=== PATIENT | female | born 1935 ===

== ENCOUNTER 2022-02-28 14:57 | Outpatient (REF) | payer MEDICARE, SELFPAY ==
[2022-02-28 15:16] LABS: Abs Immature Grans 0.03 10^3/uL (0.0-0.06); Absolute Eosinophil Count 0.32 10^3/uL (0.0-0.7); Absolute Lymphocyte Count 3.03 10^3/uL (1.2-3.4); Absolute Monocyte Count 0.85 10^3/uL (0.1-0.8); Basophils % 0.8; Eosinophils % 2.6; HCT 39.8 % (36.0-46.0); HGB 12.9 g/dL (11.2-15.7); Immature Grans % 0.2; Lymphocytes % 24.5; MCH 29.5 pg (27.0-33.0); MCHC 32.4 % (32.0-36.0); MCV 91 fL (80-95); MPV 12.4 fL (8.0-11.0); Monocytes % 6.9; Platelet Count 233 10^3/uL (130-400); RBC 4.38 10^6/uL (3.93-5.22); RDW-SD 40.1 fL; WBC 12.35 10^3/uL (4.4-10.8)
[2022-02-28 15:17] LABS: Absolute Neutrophil Count 8.03 10^3/uL (1.2-6.7)
== END 2022-02-28 14:58 | disposition home or self-care (01) ==
LOC: LBN 14:57
PROVIDERS: Visit Provider Family Medicine
DX: E11.22 Type 2 diabetes mellitus with diabetic chronic kidney disease (principal); I48.0 Paroxysmal atrial fibrillation; E03.9 Hypothyroidism, unspecified; E78.1 Pure hyperglyceridemia
CPT/HCPCS: 85025

== ENCOUNTER 2022-03-01 18:55 | Outpatient (REF) | payer MEDICARE, SELFPAY ==
[2022-03-01 20:15] LABS: Anion Gap 10.5 mmol/L (3-11); BUN 23 mg/dL (7-18); CO2 25.5 mmol/L (21.0-32.0); CREATININE 1.5 mg/dL (0.55-1.02); Chloride 105 mmol/L (98-107); Estimated GFR 32.92 (mL/min/1.73m2); Glucose 211 mg/dL (74-106); Sodium 141 mmol/L (136-145); TSH 1.84 uIU/mL (0.36-3.74)
== END 2022-03-01 18:56 | disposition home or self-care (01) ==
LOC: LBN 18:55
PROVIDERS: Visit Provider Family Medicine
DX: E11.22 Type 2 diabetes mellitus with diabetic chronic kidney disease (principal); I48.0 Paroxysmal atrial fibrillation; E03.9 Hypothyroidism, unspecified; E78.1 Pure hyperglyceridemia
CPT/HCPCS: 80048; 84443